=== PATIENT | female | born 1960 | race Caucasian/White ===

== ENCOUNTER → 2017-01-14 | Outpatient (CLI) | payer BC ==
--- NOTE | 2017-01-17 14:31 | MAMMOGRAPHY REPORT ---
BILATERAL DIGITAL SCREENING MAMMOGRAM TOMOSYNTHESIS WITH CAD: 01/14/2017 CLINICAL HISTORY: Routine screening. Patient has no complaints. TECHNIQUE: Breast tomosynthesis in addition to standard 2D mammography was performed. Current study was also evaluated with a Computer Aided Detection (CAD) system. COMPARISON: Comparison is made to exams dated: 07/21/2011 mammogram, 01/16/2016 mammogram, 01/05/2016 ma mmogram, 12/10/2014 mammogram, 11/09/2013 mammogram, and 09/06/2012 mammogram. BREAST COMPOSITION: There are scattered areas of fibroglandular density in both breasts. FINDINGS: No suspicious masses, calcifications, or areas of architectural distortion are noted in ei ther breast. There has been no significant interval change compared to prior exams. IMPRESSION: ACR BI-RADS CATEGORY 1: NEGATIVE There is no mammographic evidence of malignancy. A 1 year screening mammogram is recommended. The pa tient will receive written notification of the results. Approximately 10% of breast cancers are not detected with mammography. A negative mammographic report should not delay biopsy if a clinically suggestive mass is present. Carly Ward M.D. /:01/14/2017 16:39:14 Perioperative Tech: Yuliana Clarke, [facility] letter sent: Normal 1/2 BI-RADS Code: ACR BI-RADS Category 1: Negative
== END | disposition home or self-care (01) ==
LOC: C.MAMM 09:50
DX: Z12.31 Encounter for screening mammogram for malignant neoplasm of breast (principal)

== ENCOUNTER 2024-10-26 07:08 | Observation (INO) ==
--- NOTE | 2024-09-25 09:03 | PAT Medication Instructions ---
Medication Instructions Date of Service September 25, 2024 Home Medications aspirin 81 mg tablet,delayed release (Adult Low Dose Aspirin) 81 mg PO QAM atorvastatin 20 mg tablet (Lipitor) 20 mg PO QPM cholecalciferol (vitamin D3) 25 mcg (1,000 unit) capsule 25 mcg PO QAM multivitamin (Daily Multi-Vitamin tablet) 2 tab PO QDL coenzyme Q10 100 mg capsule (Co Q-10) 100 mg PO QAM levothyroxine 50 mcg tablet 50 mcg PO QAM mometasone 50 mcg/actuation nasal spray (Nasonex 24hr Allergy) 1 - 2 spray intranasal QDL omega-3 fatty acids 1,000 mg capsule (Fish Oil Concentrate) 1,300 mg PO QAM omeprazole 20 mg capsule,delayed release 20 mg PO QAM loratadine 10 mg tablet 10 mg PO QDL losartan 25 mg tablet 12.5 mg PO HS ASK your prescriber and surgeon aspirin 81 mg tablet,delayed release (Adult Low Dose Aspirin) 81 mg PO QAM STOP taking 2 weeks before surgery (or as soon as possible if surgery is within 2 weeks) coenzyme Q10 100 mg capsule (Co Q-10) 100 mg PO QAM omega-3 fatty acids 1,000 mg capsule (Fish Oil Concentrate) 1,300 mg PO QAM DO NOT take the morning of surgery cholecalciferol (vitamin D3) 25 mcg (1,000 unit) capsule 25 mcg PO QAM multivitamin (Daily Multi-Vitamin tablet) 2 tab PO QDL loratadine 10 mg tablet 10 mg PO QDL Take morning of surgery With a small sip of water, OTHERWISE NOTHING TO EAT OR DRINK AFTER MIDNIGHT: levothyroxine 50 mcg tablet 50 mcg PO QAM mometasone 50 mcg/actuation nasal spray (Nasonex 24hr Allergy) 1 - 2 spray intranasal QDL omeprazole 20 mg capsule,delayed release 20 mg PO QAM Take evening before surgery atorvastatin 20 mg tablet (Lipitor) 20 mg PO QPM losartan 25 mg tablet 12.5 mg PO HS Other Notes If you have any questions please call us at [phone] or [phone] or [phone] or [phone]
--- NOTE | 2024-10-02 09:49 | Anesthesiology Consultation ---
Date of Service October 02, 2024 Assessment & Plan (1) Encounter for pre-operative examination: - Check BSG DOS (Hx diet controlled borderline hypoglycemia; OR made aware) - Infectious disease screening: Per assessment on 10/02/24- No known recent infectious disease contacts or current infectious disease symptoms. - Outpatient joint assessment: Pt currently scheduled for inpatient pathway. If surgeon requests review for outpatient joint pathway, patient is an acceptable candidate for outpatient joint program from anesthesia standpoint pending surgeon's office assessment that patient is motivated, has good support and completes Same Day Joint Program preop requirements. - Hx post-op nausea: Requests pretreatment for upcoming surgery Chart Review Chart Review: Acceptable Risk for Surgery and Patient seen in Pre Admission Testing Teaching & Discussion Pre-Anesthesia Teaching/Discussion Notes: Instructed NPO after midnight before surgery,except medications with 15 cc of water. Medication instructions provided according to the PAT guidelines. History Surgery Operation Date: 10/26/24 07:00 Proposed Procedures p Right Total Hip Arthroplasty - Loy Villanueva MD Height/Weight Height: 5 ft 4 in Weight: 90.6 kg Allergies Allergy/AdvReac Type Severity Reaction Status Date / Time amoxicillin Allergy Unknown Unknown Verified 09/19/24 15:04 NSAIDS (Non-Steroidal Allergy Cannot Verified 10/02/24 10:05 Anti-Inflamma take d/t nephrectomy lisinopril AdvReac Intermediate Cough Verified 09/19/24 15:13 Medications Home Medications Medication Instructions Recorded Confirmed Last Taken aspirin 81 mg tablet,delayed 81 mg PO QAM 01/30/20 09/19/24 Unknown release (Adult Low Dose Aspirin) atorvastatin 20 mg tablet (Lipitor) 20 mg PO QPM 01/30/20 09/19/24 Unknown cholecalciferol (vitamin D3) 25 25 mcg PO QAM 01/30/20 09/19/24 Unknown mcg (1,000 unit) capsule multivitamin (Daily Multi-Vitamin 2 tab PO QDL 01/30/20 09/19/24 Unknown tablet) coenzyme Q10 100 mg capsule (Co 100 mg PO QAM 02/11/22 09/19/24 Unknown Q-10) levothyroxine 50 mcg tablet 50 mcg PO QAM 02/11/22 09/19/24 Unknown mometasone 50 mcg/actuation nasal 1 - 2 spray intranasal QDL 02/11/22 09/19/24 Unknown spray (Nasonex 24hr Allergy) omega-3 fatty acids 1,000 mg 1,300 mg PO QAM 02/11/22 09/19/24 Unknown capsule (Fish Oil Concentrate) omeprazole 20 mg capsule,delayed 20 mg PO QAM 02/11/22 09/19/24 Unknown release loratadine 10 mg tablet 10 mg PO QDL 09/19/24 09/19/24 Unknown losartan 25 mg tablet 12.5 mg PO HS 09/19/24 09/19/24 Unknown Past Medical History Medical History Arthritis of right hip Parker esophagus Diverticular disease Incidental finding on colonoscopy Hiatal hernia Hypoglycemia Borderline/Diet controlled Hypothyroidism Vertigo Exercise / Class Metabolic Activity II 4-5 Yardwork/Stairs/Walk up hill Past Family History Family History Father Colorectal cancer Denies family history of Ovarian cancer Breast cancer Past Surgical History Surgical History History of esophagogastroduodenoscopy (EGD) (05/2024) History of hammer toe correction Bilateral History of nephrectomy, 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, renal scan showed congenital defect "Reason for losartan" History of surgery Labiaplasty History of surgery Vulvectomy History of transesophageal echocardiography ([facility]) 2018 Hx of colonoscopy (05/2024) Hx of eye surgery As child for tear duct - unsure of which eye as per patient PONV (postoperative nausea and vomiting) Past Anesthesia History No Hx of Anesthesia Complications and No Family Hx of Anesthesia Complications History of PONV History of PONV (Nausea, pretreated for future procedures) and Hx of Motion Sickness (Vertigo-related) Social History Smoking Status: Former smoker Do You Dip or Chew Tobacco: No Smoking End Date: Quit 2013 Hx Alcohol Use: No Hx Substance Use: No substance use type: does not use Review of Systems Patient denies chest pain, shortness of breath, fever, chills, cough, wheezing. Physical Exam Vital Signs BP 99/65 P 69 TEMP 98.2 SP02 96%RA RESP 16 Physical Full cervical extension range of motion. Full TMJ range of motion. TMD 3 finger breaths Mallampati Score II Dentition: missing sides/molars, upper front/left lower left side implant, 2 crowns Lungs: clear throughout to auscultation Cardiac: regular rate and rhythm, no murmurs noted Spine: normal Carotid arteries: negative bruit Extremities: no LE edema Lab Results Anesthesia Preop Results Results Anesthesia Widget: WBC 7.54 K/ul (4.8-10.8) 10/02/24 Hgb 13.2 g/dl (12.0-16.0) 10/02/24 Hct 40.3 % (37.0-47.0) 10/02/24 Plt 191 K/uL (130-400) 10/02/24 Na 139 mmol/L (136-145) 10/02/24 K 4.4 mmol/L (3.5-5.1) 10/02/24 Cl 104 mmol/L (98-107) 10/02/24 CO2 29 mmol/L (21-32) 10/02/24 BUN 14 mg/dl (6-23) 10/02/24 Creat 0.85 mg/dl (0.6-1.2) 10/02/24 Glucose Level 88 mg/dl (70-99(Fasting)) 10/02/24 PT 10.4 Seconds (9.0-12.0) 10/02/24 PTT 26 Seconds (21-31) 10/02/24 INR 1.0 (0.9-1.1) 10/02/24 Blood Type O Positive 10/02/24 Antibody Screen NEGATIVE 10/02/24 Testing Electrocardiogram Date: 10/02/24 NSR at 64bpm. Low voltage QRS. Chest X-Ray Date: 10/02/24 FINDINGS: Heart size and pulmonary vasculature are normal. No effusion or consolidation. There is mild scoliosis. IMPRESSION: No acute findings.
--- NOTE | 2024-10-20 11:45 | History & Physical Report ---
Date of Service October 20, 2024 Assessment & Plan (1) Arthritis of right hip: 64-year-old female with a 10-month history of increasing right hip pain discomfort described to gotten worse over time. He does have some lumbar spondylosis placed result progressive hip arthritis. She has failed conservative treatment would like to have her hip fixed. Plan: Organ to take her to the operating room do a right total hip replacement. The risk and benefit of this procedure explained in depth. Patient understands and informed consent was obtained. I did tell her this is unlikely to help her back problems and she is aware that. Will likely use a Prevena VAC dressing due to the soft tissue envelope. Use aspirin for DVT prophylaxis. She also limit NSAIDs that due to her single kidney. She is planned to be discharged to home with some home health. (2) Hypothyroidism: (3) Hiatal hernia: (4) Parker esophagus: (5) Vertigo: History of Present Illness Chief Complaint: . Right hip pain and stiffness. Primary Care Provider: Armando Dent . The patient is a 64-year-old female who presents for treatment of her right hip. She got a fairly long history of chronic back problems and then in January of last year she started developing more groin and hip pain. She seen the [facility] doctors in [place] and discussed surgical treatment. She been scheduled and rescheduled several times in the when frustrated by this. She went through a course of therapy which helped initially and then those things seem to get worse. She like to proceed with definitive treatment/hip replacement. She cannot take NSAIDs as she only has a single kidney. She does take a baby aspirin once a day. Allergies Allergy/AdvReac Type Severity Reaction Status Date / Time amoxicillin Allergy Unknown Unknown Verified 09/19/24 15:04 NSAIDS (Non-Steroidal Allergy Cannot Verified 10/02/24 10:05 Anti-Inflamma take d/t nephrectomy lisinopril AdvReac Intermediate Cough Verified 09/19/24 15:13 Home Medications Medication Instructions Recorded Confirmed Type aspirin 81 mg tablet,delayed 81 mg PO QAM 01/30/20 09/19/24 History release (Adult Low Dose Aspirin) atorvastatin 20 mg tablet (Lipitor) 20 mg PO QPM 01/30/20 09/19/24 History cholecalciferol (vitamin D3) 25 25 mcg PO QAM 01/30/20 09/19/24 History mcg (1,000 unit) capsule multivitamin (Daily Multi-Vitamin 2 tab PO QDL 01/30/20 09/19/24 History tablet) coenzyme Q10 100 mg capsule (Co 100 mg PO QAM 02/11/22 09/19/24 History Q-10) levothyroxine 50 mcg tablet 50 mcg PO QAM 02/11/22 09/19/24 History mometasone 50 mcg/actuation nasal 1 - 2 spray intranasal QDL 02/11/22 09/19/24 History spray (Nasonex 24hr Allergy) omega-3 fatty acids 1,000 mg 1,300 mg PO QAM 02/11/22 09/19/24 History capsule (Fish Oil Concentrate) omeprazole 20 mg capsule,delayed 20 mg PO QAM 02/11/22 09/19/24 History release loratadine 10 mg tablet 10 mg PO QDL 09/19/24 09/19/24 History losartan 25 mg tablet 12.5 mg PO HS 09/19/24 09/19/24 History Past Med/Surg History Problem List Encounter for pre-operative examination Arthritis of right hip Medical History Hypoglycemia Borderline/Diet controlled Diverticular disease Incidental finding on colonoscopy Hiatal hernia Parker esophagus Vertigo Hypothyroidism Arthritis of right hip Surgical History PONV (postoperative nausea and vomiting) History of transesophageal echocardiography ([facility]) 2017 History of hammer toe correction Bilateral Hx of colonoscopy (05/2024) History of esophagogastroduodenoscopy (EGD) (05/2024) Hx of eye surgery As child for tear duct - unsure of which eye as per patient History of nephrectomy, 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, renal scan showed congenital defect "Reason for losartan" History of surgery Vulvectomy History of surgery Labiaplasty Family History Father Colorectal cancer Denies family history of Ovarian cancer Breast cancer Social History Smoking Status: Former smoker Tobacco Type: Cigarettes Second Hand Exposure: No; Do You Dip or Chew Tobacco: No; Hx Alcohol Use: No Hx Substance Use: No Preferred Language: Macedonian Communication Ability: Effective Car Sales Associate Required: No Beliefs That Will Affect Care: None Current Living Situation: Spouse Feels Safe at Home: Yes Assistive Devices: Cane, Glasses and Other Review of Systems All systems reviewed & are unremarkable except as noted in HPI & below. Physical Exam . Physical examination reveals a pleasant middle-age female. Looks in pretty good health. Examination of the right hip reveal patient walks with slightly antalgic gait. She does clearly limp on the right side. Leg lengths appear clinically equal. She has stiffness and pain with hip motion. She can internally rotate to neutral at best. Negative straight leg raise. No knee effusion. She is neurovascular intact. Constitutional WD/WN, vitals as above Respiratory normal respiratory effort, lungs clear to auscultation Cardiovascular RRR, no murmur, no edema Gastrointestinal (Abdomen) normal bowel sounds, soft, nontender, no hepatosplenomegaly Results & Data Results & Data Laboratory Results . Diagnostic Findings . X-rays of the right hip were reviewed. It shows advanced hip arthritis. This has progressed significantly over the past 6 months. He does have some lumbar spondylosis as well. MRI from [facility] was also reviewed from December of last year. It shows bone marrow change on both sides of the joint. Significant joint effusion. PG Care Time/CCT Total # of Minutes Spent Total Time Spent with Patient: Total time spent is greater than 50% in coordination of care (as documented) at patient's floor/unit and/or counseling patient: Coding Level of Care Code None Diagnoses Arthritis of right hip M16.11 Hypothyroidism E03.9 Hiatal hernia K44.9 Parker esophagus K22.70 Vertigo R42
[~2024-10-26 07:08] MED LIST: BUPIVACAINE 0.5 % 5 MG/1 ML PF 10ML VIAL ONE
--- OUTSIDE RECORDS SUMMARY | 2024-10-26 07:15 | External Medical Summary | Continuity of Care Document ---
Author Name Unknown Organization [facility] Address [address] [place] [address] Phone [phone] Care Team Providers Care Customer Service Rep Name Role Phone [facility] Care Team Information Trailer Sections Assembler [phone] Problems Active Problems Provider Date Mixed hyperlipidemia Armando Dent JR, DO On set: 11/28/2008 Gastroesophageal reflux disease Armando steward JR DO Onset: 01/13/2009 Nonallopathic lesion of lumbar region Armando Dent JR DO Onset: 05/04/2010 Peptic reflux disease Armando Dent JR DO O nset: 06/23/2015 Parker's esophagus Armando Dent JR DO Ons et: 10/25/2018 Other specified disorders of thyroid Armando Dent JR DO Onset: 10/25/2018 Cobalamin deficiency Armando Dent JR DO On set: 07/02/2020 Vitamin D deficiency Armando Dent JR DO On set: 07/02/2020 Glucose level outside reference range Armando Dent JR, DO Onset: 07/02/2020 Ex-tobacco user Armando Dent JR DO Onset: 08/03/2022 Hyperglycemia Armando Dent JR DO Onset: 08/02/2023 Social History Type Date Description Comments Sex Unknown Tobacco Use Start: Unknown End: Unknown Former Cigarette Smoker Cigarette Use 59 Years Quit - Age 53 Smoking Status Reviewed: 08/06/24 Former Cigarette Smo ker Tobacco Use Reviewed: 08/06/24 Never Smoked Cigars Tobacco Use Reviewed: 08/06/24 Never Smoked A Pipe Smokeless Tobacco 08/06/2024 Never Used Smokeless To bacco ETOH Use Occasionally consumes alcoho l Recreational Drug Use Denies Drug Use Allergies and adverse reactions Active Allergies Criticality Reaction | Severity Comments Date Amoxicillin Unable to assess criticality 01/13/2011 Inactive Allergies NKDA Unable to assess criticality 10/17/2008 NKDA Unable to assess criticality 11/09/2010 Medications Active Medications SIG Qnty Indications Order ing Provider Date Blsfdetolkzs628ca Tablets 2 tabs day 1, then 1 tab days 2-5 6tabs H92.02 Armando Dent JR, DO 10/17/2023 Allergy (Cetirizine)10mg Tablets 1 by mouth every day--OTC 90tabs Armando Dent JR, DO 03/30/2022 Gyzliospk72uwa Tablets 2 tabs by mouth Tuesday and Tuesday and 1 every other day of the week 115tabs E07.89 Armando Dent JR, DO 01/19/2022 Co Q 39158rj Capsules 1 by mouth every day 90caps Armando Dent JR, DO 09/02/2021 Atorvastatin Esemxxd47kc Tablets 1 by mouth every day 90tabs E78.49 Armando Dent JR, DO 07/14/2021 Ciclopirox8% Solution use as directed 6.600ml Armando Dent JR, DO 05/29/2019 Fish Jyl5653aq Capsules once daily E78.00 Armando Dent JR, DO 09/28/2017 Aspirin Adult Low Dime87do Tablets DR 1 by mouth every day Unknown 09/27/2017 Multi-VitaminTablets 1 po qd 30tabs Tutu Dent JR, DO Mometasone Mymikdm80ghy/Act Suspension use 2 sprays in each nostril daily 17gm J32.9 Armando Dent JR, DO H69.83 J30.2 Vitamin D High Wuyxemg1008Qqrm Capsules 1 by mouth every day E55.9 [address]uc Capsules DR Take One Caps ule By Mouth Twice Daily 60caps K22.70 Armando Dent JR, DO Losartan Ximzkspjg28hb Tablets take 1/2 tablet by mouth every morning 45tabs Armando Dent JR, DO Medications Administered in Office Medication SIG Qnty Indications Ordering Provider Date Injection Methylprednisolone Acetate 20 MGInjection Armando Dent JR, DO 06/13/2019 Influ A (H1N1) VaccineInjection Armando Dent JR, DO 05/12/2009 Immunizations CPT Code Status Date Vaccine Lot # 63052 Given 07/16/2024 Sarscov2 Vaccin e 50 mcg/0.5 ML For Im Use 12 Yrs And Older 11048 Given 04/18/2024 Influenza Vac, Split 6 Mo nths And Older [id number] 80157 Given 04/19/2023 Sarscov2 Vaccin e 50 mcg/0.5 ML For Im Use 12 Yrs And Older 03693 Given 03/30/2023 Influenza Virus Vaccine, Quadrivalent (Cciiv4), Derived From Cell [id number] 34973 Given 08/03/2022 Pneumococcal Conjugate-Pr evnar 20 [id number] 69786 Given 04/19/2022 Moderna Sars-Co v-2 (Covid-19) Vaccine, BiValent Booster [id number] 79129 Given 03/30/2022 Influenza Virus Vaccine, Quadrivalent (Cciiv4), Derived From Cell [id number] 28325 Given 10/26/2021 Moderna Covid-1 9 Vaccine 50mcg Booster-EMR Doc Only 37351 Given 05/20/2021 Moderna Sars-Co v-2 (Cov-19) vacc,100 mcg/ 0.5 mL 12Y+EMR Doc Only 34487 Given 03/31/2021 Influenza Virus Vaccine, Quadrivalent (Cciiv4), Derived From 0 Given 09/06/2020 Moderna Sars-Co v-2 (Cov-19) vacc,100 mcg/ 0.5 mL 12Y+EMR Doc Only [id number] 27449 Given 08/09/2020 Moderna Sars-Co v-2 (Cov-19) vacc,100 mcg/ 0.5 mL 12Y+EMR Doc Only [id number] 26910 Given 03/24/2020 Influenza Virus Vaccine, Quadrivalent, Im Use [id number] 29983 Given 12/18/2019 Shingrix 46863 Given 07/17/2019 Shingrix 95786 Given 03/26/2019 Influenza Virus Vaccine, Quadrivalent, Im Use [id number] 14446 Given 04/27/2018 Influenza Virus Vaccine, Quadrivalent, Im Use [id number] 11130 Given 04/08/2017 Influenza Virus Vaccine, Quadrivalent, Im Use [id number] 24827 Given 07/08/2016 Tdap (Tetanus, diphtheria & acel. pertussis) Adacel or Boostrix 12962 Given 07/08/2016 Tdap (Tetanus, diphtheria & acel. pertussis) Adacel or Boostrix [id number] 90665 Given 04/20/2016 Influenza Virus Vaccine, Quadrivalent, Im Use [id number] 12964 Given 04/28/2015 Influenza Virus Vaccine, Quadrivalent, Im Use [id number] 13663 Given 04/02/2014 Influenza Vac, Split 6 Mo nths And Older [id number] 88152 Given 04/06/2013 Influenza Vac, Split 6 Mo nths And Older [id number] 65339 Given 03/23/2012 Influenza Vac, Split, Preserv Free, Intradermal [id number] 52107 Given 03/18/2011 Influenza Vac, Split 6 Mo nths And Older [id number] 52400 Given 05/04/2010 Influenza Vac, Split 6 Mo nths And Older [id number] 80658 Given 04/07/2009 Influenza Vac, Split 6 Mo nths And Older 91390 Given 05/13/2008 Influenza Vac, Split 6 Mo nths And Older 88093 Given 05/02/2007 Influenza Vac, Split 6 Mo nths And Older 62372 Given 05/02/2006 Td (Tetanus & D iphtheria) Decavac or Tenivac Age 7 & > 99397 Given 05/02/2006 Influenza Vac, Split 6 Mo nths And Older 14305 Given 06/05/2003 Influenza Vac, Split 6 Mo nths And Older U-FLU Given Unknown Influenza,Unspecified 65473 Refused 03/20/2024 Sarscov2 Vaccin e 50 mcg/0.5 ML For Im Use 12 Yrs And Older 27065 Refused 02/10/2015 Influenza Virus Vaccine, Quadrivalent, Im Use [id number] Refused 03/26/2013 Influenza Vac, Split, Preserv Free, Intradermal Vital Signs Date Vital Result Comment 08/06/2024 10:43am BP Systolic 104 mmHg BP Diastolic 68 mmHg Body Temperature 97.8 F Heart Rate 88 /min Respiratory Rate 18 /min Weight 194.00 lb Weight 87.998 kg Height 63.5 inches 5'3.50" BMI (Body Mass Index) 33.8 kg/m2 [place] Body Weight 115 lb 07/24/2024 2:43pm BP Systolic 116 mmHg BP Diastolic 70 mmHg Body Temperature 97.5 F Heart Rate 80 /min Respiratory Rate 16 /min Weight 195.00 lb Weight 88.452 kg Results Test Acquired Date Facility Test Result H/L Range Note Protein,Total Random Urine With Creatini 07/30/[address] [facility] [facility] [place] [id number] Creatinine, Random Urine 108 mg/dL Normal 20-275 Protein/Creatin i ne Ratio 120 mg/gcreat Normal 24-184 Protein/Creatin i ne Ratio 0.120 mg/mgcrea t Normal 0.024-0.18 4 Protein, Total, Random Ur 13 mg/dL Normal 5-24 Clinical PDF Report [id number] 07/30/[address] [facility] [place] [address] Clinical PDF Report [id number] SEE IMAGE Lipid 07/30/2024 [facility] [address] [place], [place] [id number] Cholesterol 194 mg/dL 0-200 1, 2 Triglyceride 220 mg/dL High 0-150 3 HDLD 52 mg/dL See Comment 4 Measured LDL 116 mg/dL 0-130 5 Calc VLDL 44.0 mg/dL See Comment 6 Chol/HDL 3.7 RATIO See Comment 7 Non-HDL 142 mg/dL See Comment 8 Hepatic 07/30/2024 [facility] [address] [place] [address] [phone] Alk Phos 94 IU/L 43-122 Alt(SGPT) 13 IU/L 10-40 Ast(Sgot) 18 IU/L 3-42 T.Bilirubin 0.7 mg/dL 0.1-1.3 D.Bilirubin 0.1 mg/dL 0.0-0.3 Tot.Protein 6.4 g/dL 5.8-8.0 Albumin 4.2 g/dL 3.0-5.2 Iron 07/30/2024 [facility] [address] [place] [address] [phone] Iron 64 g /dL 25-140 % Saturation 07/30/2024 [facility] [address] [place] [address] [phone] % Saturation 17 % Low 30-35 Tibc 07/30/2024 [facility] [address] [place] [address] [phone] Tibc 367 g /dL 260-400 Transferrin 262 mg/dL 200-400 VB12 07/30/2024 [facility] [address] [place] [address] [phone] VB12 577 pg/mL 230-1050 Vitd-25Oh 07/30/2024 [facility] [address] [place] [address] [phone] Vitd-25Oh 36 ng/mL 30-100 Comp. Met 07/30/2024 [facility] [address] [place] [address] [phone] Glucose 92 mg/dL 70-110 BUN 11 mg/dL 6-25 Creatinine 0.9 mg/dL 0.5-1.2 Sodium 142 mEq/L 135-145 Potassium 4.3 mEq/L 3.5-5.0 Chloride 103 mEq/L 95-107 Co-2 28 mEq/L 24-31 Calcium 9.5 mg/dL 8.5-10.6 Globulin 2.2 g/dL 2.0-3.4 GFR 67 ML/MIN/1. 73SQM >60 TSH 07/30/2024 [facility] [address] [place] [address] [phone] TSH 1.91 uIU/mL 0.50-6.00 FRT4 07/30/2024 [facility] [address] [place] [address] [phone] FRT4 0.94 ng/dL 0.75-1.54 1 FASTING 2 CHOLESTEROL Less than 200mg/dl Low risk 201-239 mg/dl Borderline risk Equal to or greater 240mg/dl High risk 3 TRIGLYCERIDES Less than 150mg/dl Normal 150-199mg/dl Borderline 200-499mg/dl High Greater than 500mg/dl Very High 4 HDL <40mg/dl Elevated Risk 41-59mg/dl Risk >=60mg/dl Least Risk 5 LDL <100mg/dl Optimal 100-129mg/dl Near Optimal 130-159mg/dl Borderline High 160-189mg/dl High >=190 Very High 6 VLDL Less than 30mg/dl Normal 7 CHOL/HDL <4.0 Optimal 4.0-5.0 Borderline >6.0 High Risk 8 NON-HDL 30mg/dl higher than LDL Target Procedures Date Code Description Status 09/24/2024 29132 Canalith Reposit ioning Procedure, Jean Maneuver Per Day Completed 09/24/2024 48006 Therapy Proc, Neuromuscular Reeducation Of Movement Completed 09/10/2024 26211 Therapy Proc, Neuromuscular Reeducation Of Movement Completed 09/10/2024 53594 Canalith Reposit ioning Procedure, Jean Maneuver Per Day Completed 09/06/2024 47423 Therapy Proc, Neuromuscular Reeducation Of Movement Completed 09/06/2024 93798 Canalith Reposit ioning Procedure, Jean Maneuver Per Day Completed 09/05/2024 40162 Physical Therapy Evaluation Low Complexity Completed 09/05/2024 59040 Therapy Proc, Neuromuscular Reeducation Of Movement Completed 09/05/2024 90988 Canalith Reposit ioning Procedure, Jean Maneuver Per Day Completed 07/30/2024 02239 Venipuncture Routine Complet ed 07/24/2024 11594 Remove Impact Cerumen Irriga tion Completed 06/20/2024 18910 Omt 3-4 Body Regions Complet ed 06/11/2024 [id number] Mammogram Completed 05/30/2024 13624573 Colonoscopy Completed 05/16/2024 14367 Omt 3-4 Body Regions Complet ed 05/15/2024 82033 Therapy Proc, Neuromuscular Reeducation Of Movement Completed 05/15/2024 13185 Manual Technical Solution Architect 1/> Area 15 Min Each Region Completed 05/15/2024 29269 Therapy Proc 1/> Area 15Min Ea Completed 05/09/2024 11702 Therapy Proc, Neuromuscular Reeducation Of Movement Completed 05/09/2024 41447 Manual Technical Solution Architect 1/> Area 15 Min Each Region Completed 05/09/2024 33603 Therapy Proc 1/> Area 15Min Ea Completed 05/03/2024 60150 Therapy Proc, Neuromuscular Reeducation Of Movement Completed 05/03/2024 41035 Therapy Proc 1/> Area 15Min Ea Completed 05/03/2024 97173 Manual Technical Solution Architect 1/> Area 15 Min Each Region Completed 05/01/2024 19989 Manual Technical Solution Architect 1/> Area 15 Min Each Region Completed 05/01/2024 56320 Therapy Proc, Neuromuscular Reeducation Of Movement Completed 05/01/2024 97587 Therapy Proc 1/> Area 15Min Ea Completed 04/25/2024 58826 Physical Therapy Evaluation Low Complexity Completed 04/25/2024 33589 Manual Technical Solution Architect 1/> Area 15 Min Each Region Completed 04/25/2024 77514 Therapy Proc 1/> Area 15Min Ea Completed 04/18/2024 G0008 Influenza Admin Completed 04/18/2024 82833 Omt 3-4 Body Regions Complet ed 04/16/2024 61173 Therapy Proc, Neuromuscular Reeducation Of Movement Completed 04/16/2024 98704 Canalith Reposit ioning Procedure, Jean Maneuver Per Day Completed 04/05/2024 80141 Therapy Proc, Neuromuscular Reeducation Of Movement Completed 04/05/2024 63599 Canalith Reposit ioning Procedure, Jean Maneuver Per Day Completed Medical Devices Description No Information Available Encounters Type Date Location Provider Dx Diagnosis Office Visit 08/06/2024 10:30a Sylvia Dent JR, DO E78.49 Other hyperlipidemia R73.9 Hyperglycemia, unspe cified K22.70 Parker's esophagus without dysplasia E07.89 Other specified diso rders of thyroid Office Visit 07/24/2024 2:30p Sylvia Dent JR, DO 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, right hip H61.22 Impacted cerumen, le ft ear Assessments Date Code Description Provider 09/24/2024 H81.12 Benign paroxysmal vertigo, l eft ear Marko Shayan Kwan, DPT 09/10/2024 H81.12 Benign paroxysmal vertigo, l eft ear Marko J Aniya, DPT 09/06/2024 H81.12 Benign paroxysmal vertigo, l eft ear Marko J Aniya, DPT 09/06/2024 H81.12 Benign paroxysmal vertigo, l eft ear Marko J Aniya, DPT 09/05/2024 H81.12 Benign paroxysmal vertigo, l eft ear Marko J Aniya, DPT 08/06/2024 E78.49 Other hyperlipidemia Armandocharisma Dent JR, DO 08/06/2024 R73.9 Hyperglycemia, unspecified K clementcharisma Dent JR, DO 08/06/2024 K22.70 Parker's esophagus without dysplasia Armandocharisma Dent JR, DO 08/06/2024 E07.89 Other specified disorders of thyroid Armando Dent JR, DO 07/30/2024 E78.49 Other hyperlipidemia Armando Dent JR, DO 07/30/2024 E78.49 Other hyperlipidemia Lab - [place] 07/30/2024 R53.83 Other fatigue Armando natarajan JR, DO 07/30/2024 R53.83 Other fatigue Lab - [place] 07/30/2024 D51.9 Vitamin B12 defi ciency anemia, unspecified Armandocharisma Dent JR, DO 07/30/2024 D51.9 Vitamin B12 defi ciency anemia, unspecified [facility] - [place] 07/30/2024 E55.9 Vitamin D deficiency, unspec ified Armandocharisma Dent JR, DO 07/30/2024 E55.9 Vitamin D deficiency, unspec ified Lab - [place] 07/30/2024 R73.9 Hyperglycemia, unspecified K clementcharisma Dent JR, DO 07/30/2024 R73.9 Hyperglycemia, unspecified L [facility] - [place] 07/30/2024 E07.89 Other specified disorders of thyroid Armando Dent JR, DO 07/30/2024 E07.89 Other specified disorders of thyroid Lab - [place] 07/30/2024 N28.9 Disorder of kidn ey and ureter, unspecified Armando Dent JR, DO 07/30/2024 N28.9 Disorder of kidn ey and ureter, unspecified Lab - [place] 07/24/2024 M16.51 Unilateral post- traumatic osteoarthritis, right hip Armando Simons Jailene BEARD, DO 07/24/2024 H61.22 Impacted cerumen, left ear K felipe Simons Jailene BEARD, DO 06/20/2024 M99.03 Segmental and so matic dysfunction of lumbar region Armando Kristyn Dent JR, DO 06/20/2024 M99.05 Segmental and so matic dysfunction of pelvic region Armando Kristyn Dent JR, DO 06/20/2024 M99.06 Segmental and so matic dysfunction of lower extremity Armando Kristyn Dent JR, DO 05/16/2024 M99.05 Segmental and so matic dysfunction of pelvic region Armando Kristyn Dent JR, DO 05/16/2024 M99.03 Segmental and so matic dysfunction of lumbar region Armando Kristyn Dent JR, DO 05/16/2024 M99.06 Segmental and so matic dysfunction of lower extremity Armando WesleyAmanda Dent JR, DO 05/15/2024 M25.551 Pain in right hip Marko J Mad sen, DPT 05/15/2024 R53.1 Weakness Marko J Aniya, DPT 05/09/2024 M25.551 Pain in right hip Marko J Mad sen, DPT 05/09/2024 R53.1 Weakness Marko J Aniya, DPT 05/03/2024 M25.551 Pain in right hip Marko J Mad sen, DPT 05/03/2024 R53.1 Weakness Marko J Aniya, DPT 05/01/2024 M25.551 Pain in right hip Marko J Mad sen, DPT 05/01/2024 R53.1 Weakness Marko J Aniya, DPT 04/25/2024 M25.551 Pain in right hip Marko J Mad sen, DPT 04/25/2024 R53.1 Weakness Marko Downey Aniya, DPT 04/18/2024 M99.05 Segmental and so matic dysfunction of pelvic region Armando Kristyn Dent JR, DO 04/18/2024 M99.03 Segmental and so matic dysfunction of lumbar region Armando Kristyn Dent JR, DO 04/18/2024 M99.06 Segmental and so matic dysfunction of lower extremity Armando Dent JR, DO 04/18/2024 M25.551 Pain in right hip Armando Dent JR, DO 04/18/2024 Z23 Encounter for immunization K felipe Dent JR, DO 04/16/2024 H81.12 Benign paroxysmal vertigo, l eft ear Marko Kwan, DPT 04/05/2024 H81.12 Benign paroxysmal vertigo, l eft ear Marko Kwan, DPT Plan of Treatment Future Appointment(s):* 10/16/2024 6:30 pm - Armando Dent JR, DO at [place] * 01/29/2025 8:30 am - [facility] * 02/05/2025 10:00 am - Armando Dent JR DO at [facility] * 01/01/2025 3:30 pm - Armando Dent JR, DO at [facility] * 11/21/2024 9:30 am - Armando Dent JR, DO at [place] 08/06/2024 - Armando Dent JR, DO* E78.49 Other hyperlipidemia * R73.9 Hyperglycemia, unspecified * K22.70 Parker's esophagus without dysplasia * E07.89 Other specified disorders of thyroid * All* Follow up:* Follow-up in 6 months or sooner as needed Functional Status Description No Information Available Mental Status Description No Information Available Referrals Description No Information Available
--- OUTSIDE RECORDS SUMMARY | 2024-10-26 07:15 | External Medical Summary | Continuity of Care Document ---
Author Name Unknown Organization [facility] Address [address] [place] [address] Phone [phone] Care Team Providers Care Heel Seat Fitter Name Role Phone 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 Problems Active Problems Provider Date Mixed hyperlipidemia [...] Quit - Age 53 Smoking Status Reviewed: 10/16/24 Former Cigarette Smo ker Tobacco Use Reviewed: 10/16/24 Never Smoked Cigars Tobacco Use Reviewed: 10/16/24 Never Smoked A Pipe Smokeless Tobacco 10/16/2024 Never Used Smokeless To bacco ETOH Use Occasionally consumes alcoho l Recreational Drug Use Denies Drug Use Allergies and adverse reactions Active Allergies Criticality Reaction | Severity Comments Date Amoxicillin Unable to assess criticality 01/13/2011 Inactive Allergies NKDA Unable to assess criticality 10/17/2008 NKDA Unable to assess criticality 11/09/2010 Medications Active Medications SIG Qnty Indications Order ing Provider Date Cogtmqbzbuyh974cx Tablets 2 tabs day 1, then 1 tab days 2-5 6tabs H92.02 Armando Dent JR, DO 10/17/2023 Allergy (Cetirizine)10mg Tablets 1 by mouth every day--OTC 90tabs Armando Dent JR, DO 03/30/2022 Fftjacsrg41vmb Tablets 2 tabs by mouth Tuesday and Tuesday and 1 every other day of the week 115tabs E07.89 Armando Dent JR, DO 01/19/2022 Co Q [id number] Capsules 1 by mouth every day 90caps Armando Dent JR, DO 09/02/2021 Atorvastatin Ejceuhk71yb Tablets 1 by mouth every day 90tabs E78.49 Armando Dent JR, DO 07/14/2021 Ciclopirox8% Solution use as directed 6.600ml Armando Dent JR, DO 05/29/2019 Fish Mkm8836fn Capsules once daily E78.00 Armando Dent JR, DO 09/28/2017 Aspirin Adult Low Ilpq21mp Tablets DR 1 by mouth every day Unknown 09/27/2017 Multi-VitaminTablets 1 po qd 30tabs Tutu Dent JR, DO Mometasone Zzvzcrq32rrs/Act Suspension use 2 sprays in each nostril daily 17gm J32.9 Armando Dent JR, DO H69.83 J30.2 Vitamin D High [id number] Capsules 1 by mouth every day E55.9 Unknown S[address]fwq02qu Capsules DR Take One Caps ule By Mouth Twice Daily 60caps K22.70 Armando Dent JR, DO Losartan Hpzybsdhw24ll Tablets take 1/2 tablet by mouth every morning 45tabs Armando Dent JR, DO Medications Administered in Office Medication SIG Qnty Indications Ordering Provider Date Injection Methylprednisolone Acetate 20 MGInjection Armando Dent JR, DO 06/13/2019 Influ A (H1N1) VaccineInjection Armando Dent JR, DO 05/12/2009 Immunizations CPT Code Status Date Vaccine Lot # 16089 Given 07/16/2024 Sarscov2 Vaccin e 50 mcg/0.5 ML For Im Use 12 Yrs And Older 15202 Given 04/18/2024 Influenza Vac, Split 6 Mo nths And Older [id number] 57063 Given 04/19/2023 Sarscov2 Vaccin e 50 mcg/0.5 ML For Im Use 12 Yrs And Older 87305 Given 03/30/2023 Influenza Virus Vaccine, Quadrivalent (Cciiv4), Derived From Cell [id number] 47742 Given 08/03/2022 Pneumococcal Conjugate-Pr evnar 20 [id number] 33893 Given 04/19/2022 Moderna Sars-Co v-2 (Covid-19) Vaccine, BiValent Booster 12y+ [id number] 23798 Given 03/30/2022 Influenza Virus Vaccine, Quadrivalent (Cciiv4), Derived From Cell [id number] 73751 Given 10/26/2021 Moderna Covid-1 9 Vaccine 50mcg Booster-EMR Doc Only 03034 Given 05/20/2021 Moderna Sars-Co v-2 (Cov-19) vacc,100 mcg/ 0.5 mL 12Y+EMR Doc Only 94653 Given 03/31/2021 Influenza Virus Vaccine, Quadrivalent (Cciiv4), Derived From 8 Given 09/06/2020 Moderna Sars-Co v-2 (Cov-19) vacc,100 mcg/ 0.5 mL 12Y+EMR Doc Only [id number] 85046 Given 08/09/2020 Moderna Sars-Co v-2 (Cov-19) vacc,100 mcg/ 0.5 mL 12Y+EMR Doc Only [id number] 57183 Given 03/24/2020 Influenza Virus Vaccine, Quadrivalent, Im Use [id number] 81400 Given 12/18/2019 Shingrix 73479 Given 07/17/2019 Shingrix 95942 Given 03/26/2019 Influenza Virus Vaccine, Quadrivalent, Im Use [id number] 78671 Given 04/27/2018 Influenza Virus Vaccine, Quadrivalent, Im Use [id number] 64160 Given 04/08/2017 Influenza Virus Vaccine, Quadrivalent, Im Use [id number] 65545 Given 07/08/2016 Tdap (Tetanus, diphtheria & acel. pertussis) Adacel or Boostrix 64708 Given 07/08/2016 Tdap (Tetanus, diphtheria & acel. pertussis) Adacel or Boostrix [id number] 08736 Given 04/20/2016 Influenza Virus Vaccine, Quadrivalent, Im Use [id number] 09747 Given 04/28/2015 Influenza Virus Vaccine, Quadrivalent, Im Use [id number] 19154 Given 04/02/2014 Influenza Vac, Split 6 Mo nths And Older [id number] 48062 Given 04/06/2013 Influenza Vac, Split 6 Mo nths And Older [id number] 27613 Given 03/23/2012 Influenza Vac, Split, Preserv Free, Intradermal [id number] 39975 Given 03/18/2011 Influenza Vac, Split 6 Mo nths And Older [id number] 66315 Given 05/04/2010 Influenza Vac, Split 6 Mo nths And Older [id number] 85377 Given 04/07/2009 Influenza Vac, Split 6 Mo nths And Older 38060 Given 05/13/2008 Influenza Vac, Split 6 Mo nths And Older 29598 Given 05/02/2007 Influenza Vac, Split 6 Mo nths And Older 51279 Given 05/02/2006 Td (Tetanus & D iphtheria) Decavac or Tenivac Age 7 & > 44870 Given 05/02/2006 Influenza Vac, Split 6 Mo nths And Older 94755 Given 06/05/2003 Influenza Vac, Split 6 Mo nths And Older U-FLU Given Unknown Influenza,Unspecified 48418 Refused 03/20/2024 Sarscov2 Vaccin e 50 mcg/0.5 ML For Im Use 12 Yrs And Older 16168 Refused 02/10/2015 Influenza Virus Vaccine, Quadrivalent, Im Use [id number] Refused 03/26/2013 Influenza Vac, Split, Preserv Free, Intradermal Vital Signs Date Vital Result Comment 10/16/2024 6:34pm BP Systolic 124 mmHg BP Diastolic 80 mmHg Body Temperature 98.0 F Heart Rate 80 /min Respiratory Rate 18 /min Weight 195.00 lb Weight 88.452 kg 08/06/2024 10:43am BP Systolic 104 mmHg BP Diastolic 68 mmHg Body Temperature 97.8 F Heart Rate 88 /min Respiratory Rate 18 /min Weight 194.00 lb Weight 87.998 kg Height 63.5 inches 5'3.50" BMI (Body Mass Index) 33.8 kg/m2 [place] Body Weight 115 lb Results Test Acquired Date Facility Test Result H/L Range Note Protein,Total Random Urine With Creatini 07/30/[address] [facility] [facility] [place] [id number] Creatinine, Random Urine 108 mg/dL Normal 20-275 Protein/Creatin i ne Ratio 120 mg/gcreat Normal 24-184 Protein/Creatin i ne Ratio 0.120 mg/mgcrea t Normal 0.024-0.18 4 Protein, Total, Random Ur 13 mg/dL Normal 5-24 Clinical PDF Report [id number] 07/30/[address] [facility] [place] [address] [phone] Clinical PDF Report [id number] SEE IMAGE Lipid 07/30/2024 [facility] [address] [place], [place] [id number] Cholesterol 194 mg/dL 0-200 1, 2 Triglyceride 220 mg/dL High 0-150 3 HDLD 52 mg/dL See Comment 4 Measured LDL 116 mg/dL 0-130 5 Calc VLDL 44.0 mg/dL See Comment 6 Chol/HDL 3.7 RATIO See Comment 7 Non-HDL 142 mg/dL See Comment 8 Hepatic 07/30/2024 [facility] [address] [place] [address] Alk Phos 94 IU/L 43-122 Alt(SGPT) 13 IU/L 10-40 Ast(Sgot) 18 IU/L 3-42 T.Bilirubin 0.7 mg/dL 0.1-1.3 D.Bilirubin 0.1 mg/dL 0.0-0.3 Tot.Protein 6.4 g/dL 5.8-8.0 Albumin 4.2 g/dL 3.0-5.2 Iron 07/30/2024 [facility] [address] [place] [address] [phone] Iron 64 g /dL 25-140 % Saturation 07/30/2024 [facility] [address] [place] [address] [phone] % Saturation 17 % Low 30-35 Tibc 07/30/2024 [facility] [address] [place] [address] [phone] Tibc 367 g /dL 260-400 Transferrin 262 mg/dL 200-400 VB12 07/30/2024 [facility] [address] [place] [address] [phone] VB12 577 pg/mL 230-1050 Vitd-25Oh 07/30/2024 [facility] [address] [place] [address] [phone] Vitd-25Oh 36 ng/mL 30-100 Comp. Met 07/30/2024 [facility] [address] [place] [address] [phone] Glucose 92 mg/dL 70-110 BUN 11 mg/dL 6-25 Creatinine 0.9 mg/dL 0.5-1.2 Sodium 142 mEq/L 135-145 Potassium 4.3 mEq/L 3.5-5.0 Chloride 103 mEq/L 95-107 Co-2 28 mEq/L 24-31 Calcium 9.5 mg/dL 8.5-10.6 Globulin 2.2 g/dL 2.0-3.4 GFR 67 ML/MIN/1. 73SQM >60 TSH 07/30/2024 [facility] [address] [place] [address] [phone] TSH 1.91 uIU/mL 0.50-6.00 FRT4 07/30/2024 [facility] [address] [place] [address] [phone] FRT4 0.94 ng/dL 0.75-1.54 1 FASTING [...] LDL Target Procedures Date Code Description Status 10/16/2024 15545 Omt 3-4 Body Regions Complet ed 10/15/2024 34091 Therapy Proc, Neuromuscular Reeducation Of Movement Completed 10/15/2024 79662 Canalith Reposit ioning Procedure, Jean Maneuver Per Day Completed 09/24/2024 40592 Therapy Proc, Neuromuscular Reeducation Of Movement Completed 09/24/2024 52150 Canalith Reposit ioning Procedure, Jean Maneuver Per Day Completed 09/10/2024 83095 Therapy Proc, Neuromuscular Reeducation Of Movement Completed 09/10/2024 18200 Canalith Reposit ioning Procedure, Jean Maneuver Per Day Completed 09/06/2024 66241 Therapy Proc, Neuromuscular Reeducation Of Movement Completed 09/06/2024 54363 Canalith Reposit ioning Procedure, Jean Maneuver Per Day Completed 09/05/2024 65787 Physical Therapy Evaluation Low Complexity Completed 09/05/2024 42305 Therapy Proc, Neuromuscular Reeducation Of Movement Completed 09/05/2024 84588 Canalith Reposit ioning Procedure, Jean Maneuver Per Day Completed 07/30/2024 06915 Venipuncture Routine Complet ed 07/24/2024 33840 Remove Impact Cerumen Irriga tion Completed 06/20/2024 75255 Omt 3-4 Body Regions [facility] ed 06/11/2024 [id number] Mammogram Completed 05/30/2024 57516250 Colonoscopy Completed 05/16/2024 09902 Omt 3-4 Body Regions [facility] ed 05/15/2024 07759 Therapy Proc, Neuromuscular Reeducation Of Movement Completed 05/15/2024 98885 Therapy Proc 1/> Area 15Min Ea Completed 05/15/2024 28907 Manual Career Development Coordinator 1/> Area 15 Min Each Region Completed 05/09/2024 32677 Manual Career Development Coordinator 1/> Area 15 Min Each Region Completed 05/09/2024 11587 Therapy Proc, Neuromuscular Reeducation Of Movement Completed 05/09/2024 23255 Therapy Proc 1/> Area 15Min Ea Completed 05/03/2024 74318 Manual Career Development Coordinator 1/> Area 15 Min Each Region Completed 05/03/2024 21287 Therapy Proc, Neuromuscular Reeducation Of Movement Completed 05/03/2024 17745 Therapy Proc 1/> Area 15Min Ea Completed 05/01/2024 25386 Manual Career Development Coordinator 1/> Area 15 Min Each Region Completed 05/01/2024 72730 Therapy Proc, Neuromuscular Reeducation Of Movement Completed 05/01/2024 28143 Therapy Proc 1/> Area 15Min Ea Completed 04/25/2024 20279 Physical Therapy Evaluation Low Complexity Completed 04/25/2024 36335 Manual Career Development Coordinator 1/> Area 15 Min Each Region Completed 04/25/2024 69051 Therapy Proc 1/> Area 15Min Ea Completed Medical Devices Description No Information Available Encounters Type Date Location Provider Dx Diagnosis Office Visit 08/06/2024 10:30a [place] JR, DO E78.49 Other hyperlipidemia R73.9 Hyperglycemia, unspe cified K22.70 Parker's esophagus without dysplasia E07.89 Other specified diso rders of thyroid Office Visit 07/24/2024 2:30p [place] JR, DO 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12 Benign paroxysmal vertigo, l eft ear Marko J Aniya, DPT 09/06/2024 H81.12 Benign paroxysmal vertigo, l eft ear Marko J Aniya, DPT 09/05/2024 H81.12 Benign paroxysmal vertigo, l eft ear Marko J Aniya, DPT 08/06/2024 E78.49 Other hyperlipidemia Armando Dent JR, DO 08/06/2024 R73.9 Hyperglycemia, unspecified K felipe Dent JR, DO 08/06/2024 K22.70 Parker's esophagus without dysplasia Armando Dent JR, DO 08/06/2024 E07.89 Other specified disorders of thyroid Armando Dent JR, DO 07/30/2024 E78.49 Other hyperlipidemia Armando Dent JR, DO 07/30/2024 E78.49 Other hyperlipidemia Lab - [place] 07/30/2024 R53.83 Other fatigue Armando natarajan JR, DO 07/30/2024 R53.83 Other fatigue Lab - [place] 07/30/2024 D51.9 Vitamin B12 defi ciency anemia, unspecified Armando Dent JR, DO 07/30/2024 D51.9 Vitamin B12 defi ciency anemia, unspecified Lab - [place] 07/30/2024 E55.9 Vitamin D deficiency, unspec ified Armando Dent JR, DO 07/30/2024 E55.9 Vitamin D deficiency, unspec ified Lab - [place] 07/30/2024 R73.9 Hyperglycemia, unspecified K felipe Dent JR, DO 07/30/2024 R73.9 Hyperglycemia, unspecified L ab - [place] 07/30/2024 E07.89 Other specified disorders of thyroid Armando Dent JR, DO 07/30/2024 E07.89 Other specified disorders of thyroid Lab - [place] 07/30/2024 N28.9 Disorder of kidn ey and ureter, unspecified Armando Simons Jailene BEARD, DO 07/30/2024 N28.9 Disorder of kidn ey and ureter, unspecified Lab - [place] 07/24/2024 M16.51 Unilateral post- traumatic osteoarthritis, right hip Armando Dent JR, DO 07/24/2024 H61.22 Impacted cerumen, left ear K felipe Kristyn Dent JR, DO 06/20/2024 M99.03 Segmental and so matic dysfunction of lumbar region Armando Kristyn Dent JR, DO 06/20/2024 M99.05 Segmental and so matic dysfunction of pelvic region Armando Dent JR, DO 06/20/2024 M99.06 Segmental and so matic dysfunction of lower extremity Armando Dent JR, DO 05/16/2024 M99.05 Segmental and so matic dysfunction of pelvic region Armando Dent JR, DO 05/16/2024 M99.03 Segmental and so matic dysfunction of lumbar region Armando Kristyn Dent JR, DO 05/16/2024 M99.06 Segmental and so matic dysfunction of lower extremity Armando Kristyn Dent JR, DO 05/15/2024 M25.551 Pain in right hip Marko J Karlo rowell, DPT 05/15/2024 R53.1 Weakness Marko Kwan, DPT 05/09/2024 M25.551 Pain in right hip Marko Shayan rowell, DPT 05/09/2024 R53.1 Weakness Marko Kwan, DPT 05/03/2024 M25.551 Pain in right hip Marko J Karlo rowell, DPT 05/03/2024 R53.1 Weakness Marko Kwan, DPT 05/01/2024 M25.551 Pain in right hip Marko J Karlo rowell, DPT 05/01/2024 R53.1 Weakness Marko Kwan, DPT 04/25/2024 M25.551 Pain in right hip Marko Shayan rowell, DPT 04/25/2024 R53.1 Weakness Marko Kwan, DPT Plan of Treatment Future Appointment(s):* 04/02/2025 1:30 pm - Armando Dent JR, DO at [place] * 02/26/2025 2:30 pm - Armando Dent JR, DO at [place] * 01/30/2025 2:30 pm - Armando Dent JR, DO at [place] * 01/29/2025 8:30 am - Lab - [place] * 02/05/2025 10:00 am - Armando Dent JR, DO at [place] * 01/01/2025 3:30 pm - Armando Dent JR, DO at [place] 10/16/2024 - Armando Dent JR, DO* M99.07 Segmental and somatic dysfunction of upper extremity * M99.01 Segmental and somatic dysfunction of cervical region * M99.02 Segmental and somatic dysfunction of thoracic region* Follow up:* as needed for followup treatment. * All* Follow up:* as needed for follow up treatment Functional Status Description No Information Available Mental Status Description No Information Available Referrals Description No Information Available
[2024-10-26] MEDS ORDERED: fentaNYL citrate PF 100 MCG/2 ML VIAL ONE (07:31)
[2024-10-26] MEDS ORDERED: MIDAZOLAM HCL 1 MG/ML 2ML VIAL ONE (07:31)
[2024-10-26] MEDS ORDERED: ePHEDrine sulfate 50 MG/ML AMP ONE (07:39)
[2024-10-26] MEDS ORDERED: PROPOFOL IV EMULSION 10 MG/ML 100 ML VIAL IV ONE (07:41)
[2024-10-26] MEDS ORDERED: LIDOCAINE 2% 2 ML VIAL/AMP(20MG/ML) INFIL ONE (07:43)
[2024-10-26] MEDS: ACETAMINOPHEN 500 MG TAB PO SCH ×2 (07:44→15:30)
[2024-10-26] MEDS: LR 500ML BOLUS, THEN 15ML/HR IV SCH (07:44)
[2024-10-26] MEDS: dexAMETHasone**PF** 10 MG/ML VIAL IV SCH (07:45)
[2024-10-26] MEDS: CeleBREX 200 MG CAP PO SCH (07:45)
[2024-10-26] MEDS: METOCLOPRAMIDE HCL 10 MG TABLET PO SCH (07:45)
[2024-10-26] MEDS: FAMOTIDINE 20 MG TAB PO SCH (07:45)
[2024-10-26] MEDS: LR 60ML/HR IV SCH (07:46)
--- NOTE | 2024-10-26 08:17 | History & Physical Bridge Note ---
Date of Service October 26, 2024 History & Physical Bridge Note I have examined the patient, reviewed the History & Physical and in the interval since the performance of the History & Physical I have noted the following changes of clinical significance: no changes noted
[2024-10-26] MEDS: TRANEXAMIC ACID 1,000 MG **IV Pre-op IV SCH (08:19)
[2024-10-26] MEDS: ceFAZolin 2000MG 2,000 MG/15 ML SYR IV SCH ×2 (08:36→17:24)
[2024-10-26] MEDS ORDERED: NALOXONE HCL 0.4 MG/1 ML VIAL/CARP IV PRN ×2 (08:37→12:06)
[2024-10-26] MEDS ORDERED: FLUMAZENIL 0.1 MG/1 ML 10 ML VIAL IV PRN (08:37)
[2024-10-26] MEDS ORDERED: HYDROmorphone INJ 1 MG/ML SYRINGE IV PRN (08:37)
[2024-10-26] MEDS ORDERED: ONDANSETRON INJ 2 MG/ML 2 ML VIAL IV PRN ×2 (08:37→12:06)
[2024-10-26] MEDS ORDERED: fentaNYL citrate PF 100 MCG/2 ML VIAL IV PRN (08:37)
[2024-10-26] MEDS ORDERED: ATROPINE SULFATE 0.1 MG/ML 10ML SYR IV PRN (08:37)
[2024-10-26] MEDS ORDERED: ePHEDrine sulfate 50 MG/ML AMP IV PRN (08:37)
[2024-10-26] MEDS ORDERED: PROMETHAZINE HCL 6.25 MG in SODIUM CHLORIDE 0.9% 50 ML IV PRN (08:37)
[2024-10-26] MEDS ORDERED: PHENYLEPHRINE HCL 10 MG/ML VIAL ONE ×2 (09:01→09:02)
[2024-10-26] MEDS: BUPIVACAINE/EPINEPHRINE 0.5% MPF 1:200,000 30 ML VIAL ONE (09:15)
[2024-10-26] MEDS ORDERED: ONDANSETRON INJ 2 MG/ML 2 ML VIAL ONE (09:22)
--- NOTE | 2024-10-26 10:23 | Operative Report ---
PG Post Operative Report Pre & Post Diagnosis Operation Date: 10/26/24 08:50 Pre-Op Diagnosis: Right Hip Degenerative Joint Disease Post-Op Diagnosis: Right Hip Degenerative Joint Disease I identified the patient and participated in the time-out.: Yes Procedure Operation Date: 10/26/24 08:50 Actual Procedures p Right Total Hip Arthroplasty, Uncemented(Right) - Loy Villanueva MD Surgeon Loy Villanueva MD Sr. Unix System Administrator BHUMI Canales Estimated Blood Loss 100 Findings Consistent with Post-Op Diagnosis Specimens Right femoral head sent for pathology. Anesthesia Type Spinal MAC Complications none Disposition Accompanied Patient To Recovery: No Indications Patient is a 64-year-old female with a several year history of increasing right hip pain discomfort described to gotten worse over time. She failed conservative measures. X-rays show progressive hip arthritis. She would like to proceed with total hip arthroplasty. Description of Procedure Operative implants consist of: 1. Biomet G7 size 48 mm acetabular shell. 2. [place] hole mysql database developer. 3. Highly cross-linked polyethylene liner with a 48 mm outer diameter 32 mm inner diameter. 4. 6.5 cancellous acetabular screws 1 at 35 mm length and 1 of 20 mm length. 5. DePuy Corail size 11 KLA femoral stem. 6. +5/32 mm ceramic articular ball. The patient was taken the op room, identified, placed on the operating table in the supine position. All conductors were appropriately padded. IV antibiotics provided by anesthesia team. Spinal anesthetic had been implemented holding area. A Mcfadden catheter was placed in a sterile fashion. The patient was then placed in the left lateral decubitus position. An axillary roll was placed. Stolberg hip position was used for positioning. The right hip and leg were then prepped and draped in usual sterile fashion. A posterolateral approach to the right hip was then performed through a curvilinear incision centered over the greater trochanter. Sharp dissection Through subcutaneous tissue down to level the IT band gluteal fascia. The IT band gluteal fascia incised longitudinally in line with skin incision. The underlying greater bursa was excised. The piriformis and external rotators along with the posterior hip joint capsule were then released from the posterior aspect the hip as a single layer. Great care was taken throughout the procedure to protect the sciatic nerve at all times. The hip was internally rotated and dislocated. A femoral neck osteotomy cut was made with a Final Cut about 10 mm above the lesser trochanter. Femoral head was removed and sent for pathology. The femur was retracted anteriorly. Attention then drawn to the acetabulum. The acetabulum labrum was excised. The pulmonary fat was excised. Sequential reaming the acetabulum was then performed beginning with a size 43 and progressing up to 47. I reamed a little bit with a 48 reamer and then placed a 48 mm Biomet G7 acetabular shell in about 40 degrees lateral opening and 20 degrees of anteversion. It was fixed with two 6.5 screws. A trial liner was placed. Attention drawn the femur. The proximal femur was entered with a Frock Advisor cutter followed by canal finder. Then broached began with a size 8 and progressed up to 11. Get excellent fit 11. We trialed the hip and the +5 articular ball provided full stability. There is still a bit of soft tissue laxity so I elected place a tucker inferior and posterior to maximize her stability in flexion. We elected to place these implants. All trial implants were removed. I irrigated the wound extensively. An apex hole mysql database developer was placed. Highly cross-linked polyethylene liner was placed. A size 11 KLA femoral stem was impacted in position. A +5/32 mm ceramic articular ball was placed. Hip was located once again found to be stable. Attention was then drawn toward closing. The knee was irrigated With Pulsatile Lavage Solution. I Did Inject Locally with 60 Cc of Prep Sent Marcaine with Epinephrine. The Posterior Capsule and External Rotators Were Then Repaired through Drill Holes in the Posterior Trochanter with #2 Tycron Suture. The IT Band Gluteal Fascia Was Then Closed in 1 PDS Suture in a Running Fashion the Subcutaneous Tissue Was Then Closed with 2 Layers of the Deep Layer #2 Vicryl Suture in the Subcutaneous Tissues with 2-0 Dexon Suture in a Buried Interrupted Fashion. The Skin Was Closed with Skin [place]. The Leg Was a Clear and Dried. A Prevena VAC Dressing Was Applied to the Very Thick Soft Tissue Envelope. The Patient Was Then Transferred to the Recovery Room in Stable Condition. The Patient Tolerated the Procedure Well and There Were No Complications. Hussain Canales, my physician offset press assistant, was present for the entire procedure. His assistance was essential and required for appropriate patient positioning, prepping and draping, surgical exposure, performing the technical details of the operation, placement the implants, closure of the wound, and placement of the sterile bandage. I attest to the content of the Intraoperative Record and any orders documented therein. Any exceptions are noted below.
--- NOTE | 2024-10-26 10:35 | XRay Report ---
XR hip 1V RT w pelvis CLINICAL HISTORY: IN PACU - Post Surgical COMPARISON: None FINDINGS: Right hip prosthesis shows no hardware complication. There is expected soft tissue gas. Sk in zulma are present laterally. IMPRESSION: Unremarkable postoperative exam. ACT 112: Negative or not required by law. Electronically signed by: Drew Aguirre M.D. 10/26/2024 10:33 AM
--- NOTE | 2024-10-26 11:29 | Anesthesiology Progress Note ---
Date of Service October 26, 2024 Anesthesia Post Procedure Vital Signs Vital Signs: Temp Pulse Pulse Resp BP Pulse Ox O2 Del Method 10/26/24 11:00 36.6 C 64 18 95/68 L 94 Room Air 10/26/24 10:50 78 15 111/73 95 Room Air 10/26/24 10:40 74 13 94/67 L 97 Room Air 10/26/24 10:30 84 19 104/64 98 Room Air 10/26/24 10:20 88 19 106/68 100 Oxymask 10/26/24 10:10 36.2 C L 91 H 20 104/66 100 Oxymask 10/26/24 07:56 36.6 C 75 20 131/66 97 Room Air O2 Flow Rate 10/26/24 11:00 10/26/24 10:50 10/26/24 10:40 10/26/24 10:30 10/26/24 10:20 2 10/26/24 10:10 2 10/26/24 07:56 Transfer of Care Handoff Completed per policy Notes Mental Status: alert / awake / arousable Patient Amnestic to Procedure: Yes Nausea / Vomiting: adequately controlled Pain: adequately controlled Airway Patency, RR, SpO2: stable & adequate BP & HR: stable & adequate Hydration State: stable & adequate Anesthetic Complications: no major complications apparent
[2024-10-26] MEDS ORDERED: traMADol HCL 50 MG TABLET PO PRN (12:06)
[2024-10-26] MEDS ORDERED: NON-FORMULARY MEDICATION (Multivitamin [Daily Multi-Vitamin] tablet) PO SCH (12:06)
[2024-10-26] MEDS ORDERED: NO NSAIDS SCH (12:06)
[2024-10-26] MEDS ORDERED: HYDROmorphone INJ 0.5 MG/0.5 ML SYR IV PRN (12:06)
[2024-10-26] MEDS ORDERED: bisacodyL 10 MG SUPP PR PRN (12:06)
[2024-10-26] MEDS ORDERED: METOCLOPRAMIDE HCL INJ 5 MG/ML 2 ML VIAL IV PRN (12:06)
[2024-10-26] MEDS ORDERED: ALUMINUM/MAGNESIUM SUSP 30 ML UDC PO PRN (12:06)
[2024-10-26] MEDS ORDERED: MAGNESIUM HYDROXIDE SUSP 30 ML UDC PO PRN (12:06)
[2024-10-26] MEDS ORDERED: ACETAMINOPHEN 500 MG TAB PO SCH (14:00)
[2024-10-26] MEDS: LORATADINE 10 MG TAB PO SCH (15:31)
[2024-10-26] MEDS: TRANEXAMIC ACID / 0.7% NACL 1,000 MG/100 ML BAG IV SCH (16:15)
[2024-10-26] MEDS: ASCORBIC ACID 500 MG TAB PO SCH (17:26)
[2024-10-26] MEDS: DOCUSATE SODIUM 100 MG CAP PO SCH (20:54)
[2024-10-26] MEDS: ASPIRIN 81 MG ECTAB PO SCH (20:55)
[2024-10-26] MEDS: ATORVASTATIN 20 MG TAB PO SCH (20:55)
[2024-10-26] MEDS: SENNA 8.6 MG TAB PO SCH (20:55)
[2024-10-26] MEDS: LOSARTAN POTASSIUM 25 MG TAB PO SCH (20:56)
[2024-10-26] MEDS ORDERED: SENNA 8.6 MG TAB PO SCH (21:00)
[2024-10-27] MEDS: LEVOTHYROXINE SODIUM 50 MCG TABLET PO SCH (05:11)
[2024-10-27 06:25] LABS: Basophils # (auto) 0.01 K/uL (0.00-0.20); Basophils % (auto) 0.1 %; Hematocrit (blood only) 37.1 % (37.0-47.0); Hemoglobin 12.2 g/dl (12.0-16.0); Immature Granulocytes # (auto) 0.05 K/uL (0.01-0.20); Immature Granulocytes % (auto) 0.4 %; Lymphocytes # (auto) 1.38 K/uL (1.20-3.40); Lymphocytes % (auto) 11.2 %; Mean Corpuscular Hemoglobin 28.9 pg (25.0-34.0); Mean Corpuscular Hgb Conc 32.9 g/dL (32.0-36.0); Mean Corpuscular Volume 87.9 fL (80.0-100.0); Monocytes # (auto) 0.68 K/uL (0.11-0.59); Monocytes % (auto) 5.5 %; Neutrophils # (auto) 10.18 K/uL (1.40-6.50); Neutrophils % (auto) 82.8 %; Platelet Count 186 K/uL (130-400); RDW Coefficient of Variation 12.8 % (11.5-14.5); RDW Standard Deviation 41.4 fL (36.4-46.3); Red Blood Count 4.22 M/uL (4.20-5.40)
[2024-10-27] MEDS ORDERED: LEVOTHYROXINE SODIUM 50 MCG TABLET PO SCH (06:30)
[2024-10-27 06:39] LABS: Calcium 9.4 mg/dl (8.6-10.3); Creatinine Clr Calc Pharmacy 67.8 ml/min; Potassium 4.3 mmol/L (3.5-5.1)
--- NOTE | 2024-10-27 07:51 | Orthopedic Progress Note ---
Date of Service October 27, 2024 Assessment & Plan (1) Status post right hip replacement: Plan: 64-year-old female postop day 1 from right hip replacement doing quite well. Pain seems to be controlled. Just taken Tylenol. She looks comfortable. Hips located. She is neurologically intact. I think her expectations are little bit high considering she is postop day 1 and expected to get around with minimal difficulty. Plan: 1. DVT prophylaxis including thigh-high teds, SCDs, aspirin twice a day. 2. PT/OT. Weight-bear as tolerated. Right total hip protocol. 3. Pain control. Doing well with current pain regimen. 4. Disposition. Plan is discharge to home with some home health if she is doing okay in therapy. Will see how therapy goes today. Admission and Anticipated Discharge Date Admission Date: October 26, 2024 Subjective 64-year-old female postop day 1 from a right hip replacement. She is doing okay. A little bit frustrated she is not able to get around a little bit easier. Pain is controlled. She just been taken Tylenol. No chest pain or shortness of breath. Not feeling dizzy or lightheaded. Physical Exam Physical Exam: Physical nation was a pleasant middle-age female. She send of her bedside chair looks very comfortable. Examination of the right hip reveals the Prevena VAC dressing to be in place. Leg lengths are equal. Thigh is soft and supple. She can dorsiflex and plantarflex her foot appropriately. She is neurologically intact. Respiratory: normal respiratory effort, lungs clear to auscultation Cardiovascular: RRR, no murmur, no edema Gastrointestinal (Abdomen): normal bowel sounds, soft, nontender, no hepatosplenomegaly Results & Data Vital Signs (Past 12 Hours) Vital Signs Temp Pulse Resp BP Pulse Ox O2 Del Method 10/27/24 03:52 36.9 C 62 18 103/68 95 Room Air 10/26/24 23:31 36.8 C 67 18 108/71 94 Room Air 10/26/24 20:08 37.2 C 81 122/76 94 Room Air Laboratory Results Hemoglobin is 12.2. Hematocrit is 37.1. Electrolytes are stable.
[2024-10-27] MEDS: PANTOprazole 40 MG TAB PO SCH (10:08)
[2024-10-27] MEDS: dexAMETHasone 10 MG in SYRINGE 0 ML IV SCH (10:08)
[2024-10-27] MEDS: CHOLECALCIFEROL 25 MCG (1000 UNITS) TAB PO SCH (10:08)
[2024-10-27] MEDS: MULTIVITAMIN TAB PO SCH (10:11)
[2024-10-27] MEDS: FLUTICASONE PROPIONATE NA SPR 16 GM BTL SCH (10:11)
[2024-10-27] MEDS: OMEGA-3 (PURIFIED FISH OIL) 1 GM CAP PO SCH (10:12)
--- NOTE | 2024-10-28 08:12 | Orthopedic Progress Note ---
Date of Service October 28, 2024 Assessment & Plan Admission and Anticipated Discharge Date Admission Date: October 26, 2024 Subjective 64-year-old female postop day 2 from right uncemented hip replacement. She is doing okay. Just really taken Tylenol for pain control. Cannot take NSAIDs due to single kidney. Pains been pretty well-controlled. Has not been able to do steps yet. Pretty apprehensive about going home. She is got steps that she has to navigate at home with limited help. Physical Exam Physical Exam: Physical nation was a pleasant middle-age female. Sitting up in her bedside chair looks comfortable. Examination of the right hip and leg reveals the dressing be clean dry and intact. Thigh is soft and supple. Leg lengths are equal. She is neurologically intact. Results & Data Vital Signs (Past 12 Hours) Vital Signs Temp Pulse Resp BP Pulse Ox O2 Del Method 10/28/24 07:26 36.6 C 65 16 105/67 97 Room Air Diagnostic Findings 64-year-old female postop day 2 from a right uncemented hip replacement doing pretty well. Pain biswas she is doing pretty well. Cannot take NSAIDs due to single kidney issue. Has not navigated steps yet and she has to do that to get home. Plan: 1. DVT prophylaxis including thigh-high teds, SCDs, aspirin twice a day. 2. PT/OT. Weight-bear as tolerated right total hip protocol. 3. Pain control. Doing okay with current pain regimen. She has just been using Tylenol and seems to be getting along okay with that. Cannot take NSAIDs due to the single kidney issue. 4. Wound management. She has a Prevena VAC dressing in place. Seems to be working well. 5. Disposition. Plan is to discharge to home at this point. Will try to get her to therapy and get her safe on steps. Once she is safe we will likely get her home. If unable to care to the point where she is safe at home and may need a brief rehab stay. Will see how therapy goes today.
[2024-10-29] MEDS: LEVOTHYROXINE SODIUM 50 MCG TABLET PO SCH (06:04)
--- NOTE | 2024-10-29 07:48 | Orthopedic Progress Note ---
Date of Service October 29, 2024 Assessment & Plan (1) Status post right hip replacement: POD 3 from right KAY. D/c planning: She is open to rehab, as she is not able to do stairs required for her at home Pain controlled continue PT/OT, wbat, hip precautions dvt prophylaxis: teds, scd's, aspirin will discuss with Dr Villanueva, including whether to begin antibiotic prescription at this time. Keflex ordered TID while in hospital for post op prophylaxis Subjective .64 year old patient POD 3 from right KAY. She has not been able to do stairs well yet, and is not comfortable getting out of bed herself. Said she cannot lift her leg enough to get out of bed. She is open to going to rehab and discussed this with staff yesterday. Pain reasonably controlled. Her leg feels heavy to her. Review of Systems All systems reviewed & are unremarkable except as noted in HPI & below. Physical Exam . alert and oriented. NAD. Sitting in bedside chair Right leg: Prevena vac intact and appears to be functioning properly. Able to dorsiflex and plantarflex. NVI. Results & Data Results & Data Laboratory Results . Diagnostic Findings . PG Care Time/CCT Total # of Minutes Spent Total Time Spent with Patient: Total time spent is greater than 50% in coordination of care (as documented) at patient's floor/unit and/or counseling patient: Coding Level of Care Code 77896 Post Operative Follow-Up Diagnoses Status post right hip replacement Z96.641
[2024-10-29] MEDS: cephALEXin 500 MG CAP PO SCH (14:24)
[2024-10-29 15:02] VITALS: TEMP 98.1
[2024-10-30 08:34] VITALS: BP 116/75; PULSE 74; RESP 20; O2SAT 96
--- NOTE | 2024-10-30 10:53 | Orthopedic Progress Note ---
Date of Service October 30, 2024 Assessment & Plan (1) Status post right hip replacement: POD 4 from right KAY. D/c planning: She is open to rehab, as she is not able to do stairs required for her at home. Awaiting word from case management. Pain controlled continue PT/OT, wbat, hip precautions dvt prophylaxis: teds, scd's, aspirin Keflex ordered TID while in hospital for post op prophylaxis Subjective . Rita was seen this morning sitting at bedside in her chair in no visible distress. She is currently postop day 4 from a right total hip arthroplasty. She has not been able to do stairs well yet at this point is not comfortable getting out of the bed by herself. She cannot lift her leg enough to get out of bed. She is currently awaiting placement at either a rehab or alf facility. Pain is reasonably controlled at this point. She denies any other concerns today. Review of Systems All systems reviewed & are unremarkable except as noted in HPI & below. Physical Exam .alert and oriented. NAD. Sitting in bedside chair Right leg: Prevena vac intact and appears to be functioning properly. Able to dorsiflex and plantarflex. NVI. Results & Data Results & Data Laboratory Results . Diagnostic Findings . PG Care Time/CCT Total # of Minutes Spent Total Time Spent with Patient: Total time spent is greater than 50% in coordination of care (as documented) at patient's floor/unit and/or counseling patient: Coding Level of Care Code 54635 Post Operative Follow-Up Diagnoses Status post right hip replacement Z96.641
--- NOTE | 2024-10-31 13:47 | Discharge Summary ---
Date of Service October 31, 2024 Admission HPI (Per Admitting) . The patient is a 64-year-old female who presents for treatment of her right hip. She got a fairly long history of chronic back problems and then in January of last year she started developing more groin and hip pain. She seen the [facility] doctors in [place] and discussed surgical treatment. She been scheduled and rescheduled several times in the when frustrated by this. She went through a course of therapy which helped initially and then those things seem to get worse. She like to proceed with definitive treatment/hip replacement. She cannot take NSAIDs as she only has a single kidney. She does take a baby aspirin once a day. Admission Exam (Per Admitting) . Physical examination reveals a pleasant middle-age female. Looks in pretty good health. Examination of the right hip reveal patient walks with slightly antalgic gait. She does clearly limp on the right side. Leg lengths appear clinically equal. She has stiffness and pain with hip motion. She can internally rotate to neutral at best. Negative straight leg raise. No knee effusion. She is neurovascular intact. Principal Diagnosis Same as "Discharge Diagnosis" noted below under Discharge Instructions. Discharge Exam .alert and oriented. NAD. Sitting in bedside chair Right leg: Prevena vac intact and appears to be functioning properly. Able to dorsiflex and plantarflex. NVI. Discharge Data Procedures Performed Operation Date: 10/26/24 08:50 Actual Procedures p Right Total Hip Arthroplasty, Uncemented(Right) - Loy Villanueva MD Hospital Course (1) Status post right hip replacement: This is a 64 year old patient admitted on 10/26/24 and underwent total hip arthroplasty. She tolerated the procedure well and there were no complications. Transferred to the PACU post op and later to the orthopedic floor for further care. She was given ancef for antibiotic prophylaxis. She was also given DESTIN stockings, SCDs, and aspirin for DVT prophylaxis. Hemoglobin, hematocrit, and vital signs were monitored during her hospital stay and remained stable. Did not require any blood transfusions. There were no complications during her hospital stay. By post op day #4 the patient was tolerating a regular diet, pain was reasonably controlled with oral pain medicine, and she was participating in physical therapy. On post op day #4 the patient was discharged to a rehab facility. She was given printed discharge instructions including prescriptions for extra strength tylenol, aspirin, cefadroxil, zofran, senokot, and tramadol. Continue physical therapy, weight bearing as tolerated. Continue DESTIN stockings. Follow up approximately 2 weeks post op or sooner if there are problems or concerns. PG Care Time/CCT Total # of Minutes Spent Total Time Spent with Patient: Total time spent is greater than 50% in coordination of care (as documented) at patient's floor/unit and/or counseling patient: Discharge Plan Discharge Items Patient Disposition: Transfer Inpatient Rehab Fac Reason For Visit: Right Hip Osteoarthritis Discharge Diagnosis: Right Hip Replacement Activity: Per Instructions section Activity Comment: Follow/Obey hip precautions at all times Weightbearing: Full weightbearing Weightbearing Comment: Weightbear as tolerated obeying hip precautions at all times. Non-emergency contact: Surgeon Call non-emergency contact if: you have any medication questions Follow-up/Referrals: Armando Dent [Primary Care Provider] - Diet: Regular Addtl Attending Provider Instructions: ACTIVITY RECOMMENDATIONS: Diet: * You may resume previous diet. Physical Therapy: * Aggressive physical therapy is not usually needed. You will learn to take care of yourself safely and walk. * Follow the "Hip Precautions Instructions." * In some cases, the social sciences chair at the hospital will arrange to have a therapist come to your house for the first couple of weeks to help you learn these skills. * You need to practice on your own or with the help of a family member as needed. * When you learn these skills, most of the therapy can be done on your own. Home Exercise: * You were shown a series of exercises in the hospital. Do these exercises three to four times each day including the exercises you were shown in physical therapy. Walking: * Get up and walk several times each day. For the first four weeks, try not to stand or walk for more than one hour at a time. If you do stand or walk for more than one hour, you will not hurt anything, but your leg will likely swell. * As you feel comfortable, you may change from the walker or crutches to a cane and then to independent walking. MEDICATIONS: New Medicine: * You will likely be taking one or more of these medicines: 1. Tramadol - Take, as directed, when you need it, every six hours to control your pain. 2. Aspirin - Thins your blood to lessen the chance of forming a blood clot. * The most common side effects of pain medicine and iron are nausea and constipation. If nausea or constipation is too much of a problem or if you have any questions about your new medicines or doses, call [facility] at . We will try to help you manage these issues. "VERY IMPORTANT TO READ AND REVIEW" Pain: * The immediate post-operative period after hip replacement surgery is often quite painful. * You are given a prescription for pain medicine. You should take it, as directed, when you need it, especially before physical therapy and before going to bed. Pain that interferes with sleep is very common and can last several months. * You will likely need pain medicine for the first two to four weeks. It will not stop all of the pain. The pain will lessen and as you feel better, you may change to milder pain medicine such as Tylenol. * The most common side effects of pain medicine are nausea and constipation, so don't take more than you need. SPECIAL CARE INSTRUCTIONS: TEDs/Elastic Stockings: * The white elastic stockings help limit swelling and prevent blood clots from forming in your legs. The more you wear them, the more they work. * Wear them for six weeks. Incision Site Care: * Remove dressing postoperative day 7. Keep direct shower pressure off the incision site. * After showering, cover zulma with dry gauze and change daily or more frequently if the dressing is getting saturated with drainage. * May completely stop using bandage if wound is dry and no drainage * Zulma are removed between 2 and 3 weeks post-op. If your follow-up appointment is made before 2 weeks, please have your appointment re- scheduled. It is too early to remove the zulma. Prevention of Infection: * Take antibiotics one hour before any dental cleaning, dental work, urological procedure, gastrointestinal procedure or any invasive surgery in order to prevent your new joint from getting infected. * You may get the antibiotics from the doctor performing the procedure or you may call our office at before and we will call in a prescription to the pharmacy of your choice. Things to Watch For: * Drainage from the incision site that occurs more than one week after your surgery. * Severely increased leg pain or swelling. * Increased redness at the incision site. * Fever above 102 degrees Fahrenheit. * Unusual chest pain or shortness of breath. * Unusual pain or burning with urination. Call [facility] at with any of the above problems or if you have any questions about your medicines or recovery. FOLLOW UP VISIT: Make an appointment to see your doctor for approximately two weeks after surgery for a progress check and staple removal by calling the office at . Pending Studies at Discharge: No Stand-Alone Forms: My [facility], Smoking Cessation Skilled Items Patient informed of condition?: Yes DNR: No Discharge Level of Care: Acute rehab Communicable Disease: No Discharge Prognosis: Improving Lines: None Urinary Catheter: No Medications and DC Order Prescriptions: Continued tramadol 50 mg tablet 50 - 100 mg PO Q6 PRN (Reason: pain) Qty: 40 0RF Rx Instructions: Take as needed for pain ondansetron 4 mg tablet,disintegrating 4 mg PO Q8 PRN (Reason: nausea) Qty: 20 1RF Rx Instructions: Take as needed for nausea sennosides [Senokot] 8.6 mg tablet 8.6 mg PO BID 14 Days Qty: 28 0RF Rx Instructions: Take two times a day to prevent/treat constipation acetaminophen [Tylenol Extra Strength] 500 mg tablet 1,000 mg PO TID 30 Days Qty: 180 0RF Rx Instructions: Take 3 times per day to lessen pain. aspirin [Darinel Low Dose Aspirin] 81 mg tablet,delayed release (DR/EC) 81 mg PO BID 45 Days Qty: 90 0RF Rx Instructions: Take to prevent blood clots. atorvastatin [Lipitor] 20 mg tablet 20 mg PO QPM multivitamin [Daily Multi-Vitamin] Tablet 2 tab PO QDL cholecalciferol (vitamin D3) 25 mcg (1,000 unit) capsule 25 mcg PO QAM omega-3 fatty acids [Fish Oil Concentrate] 1,000 mg capsule 1,300 mg PO QAM coenzyme Q10 [Co Q-10] 100 mg capsule 100 mg PO QAM mometasone [Nasonex 24hr Allergy] 50 mcg/actuation spray,non-aerosol 1 - 2 spray intranasal QDL Rx Instructions: administer into each nostril omeprazole 20 mg capsule,delayed release(DR/EC) 20 mg PO QAM levothyroxine 50 mcg tablet 50 mcg PO QAM Rx Instructions: Tuesday & Fridays take 2 tabs - all other days take 1 tab losartan 25 mg tablet 12.5 mg PO HS loratadine 10 mg Tablet 10 mg PO QDL Discontinued aspirin [Adult Low Dose Aspirin] 81 mg tablet,delayed release (DR/EC) 81 mg PO QAM Discharge Orders: Discharge Order (Routine); Ordered 10/30/24 Ordered By: Loy Villanueva Admission Data Admit Date/Time: 10/29/24 14:15 Attending Provider: Loy Villanueva Admit Provider: Lyo Villanueva Primary Care Provider: Armando Dent Other Providers: [facility] Other Interventions: Discharge Summary Assessment (RN) Last Done: 10/30/24 15:41
== END 2024-10-30 16:00 | DRG 470 ==
LOC: ASU 07:08 → PACUINP 07:08 → 3E 13:24